=== PATIENT | female | born 1955 | race Caucasian/White ===

== ENCOUNTER → 2016-06-12 | Outpatient (CLI) | payer BC, OTHER ==
[~2016-06-12] VITALS: Ht 170.2 cm; Wt 76.5 kg
[~2016-06-12] MED LIST: ASPI81TA28 PO; BIOT1CAP8; CALC500C70 PO; CHOL1000 PO; CYAN100073; HYDR-3419 PO; LISI-789 PO; LSN5 PO; METO50TA16 PO; MULT-506 PO
[2016-06-12 08:28] VITALS: Ht 170.2 cm; Wt 76.5 kg
--- NOTE | 2016-06-12 08:57 | PAT Medication Instructions ---
Service Date Jun 12, 2016. Current Home Medication List Lisinopril (Zestril), 2.5 MG PO NOON Metoprolol Tartrate (Lopressor) (Lopressor), 50 MG PO BID Medication Instructions For Your Scheduled Surgery - Hold the following medications the morning of surgery: Lisinopril (Zestril), 2.5 MG PO NOON - Take the following medications the morning of surgery with a sip of water OTHERWISE NOTHING TO EAT OR DRINK AFTER MIDNIGHT: Metoprolol Tartrate (Lopressor) (Lopressor), 50 MG PO BID - Take the following medications as scheduled the night before surgery: Metoprolol Tartrate (Lopressor) (Lopressor), 50 MG PO BID If you have any questions please call us at [phone] or [phone] or [phone]
--- NOTE | 2016-06-12 09:45 | DIAGNOSTIC IMAGING REPORT ---
CHEST 2 VIEWS ROUTINE CLINICAL HISTORY: Preoperative chest COMPARISON STUDY: No previous studies for comparison. FINDINGS: The cardiac and mediastinal contours are normal. There is no evidence of focal pulmonary consolidation. There is no evidence of failure. No pleural effusions are visualized.[ There is minor linear scar/atelectasis within left midlung zone. IMPRESSION: No active disease in the chest. Electronically signed by: Ayan Muhammad M.D. 06/12/2016 9:43 AM Dictated Date/Time: 06/12/2016 9:43 AM
[2016-06-12 09:52] LABS: BASO % 0.4 %; BASO ABS # 0.03 K/uL (0-0.2); COMPLETE YES; EOS % 1.7 %; IG% 0.3 %; LYMPH % 31.6 %; LYMPH ABS # 2.44 K/uL (1.2-3.4); MEAN CELL VOLUME 93.9 fL (80-100); MEAN CORPUSCULAR HGB CONC 33.1 g/dl (32-36); MEAN PLATELET VOLUME 10.5 fL (7.4-10.4); MONO % 10.9 %; NEUT % 55.1 %; PLATELET COUNT 197 K/uL (130-400); RED BLOOD COUNT 5.22 M/uL (4.2-5.4); WHITE BLOOD COUNT 7.73 K/uL (4.8-10.8)
[2016-06-12 10:12] LABS: PROTHROMBIN TIME (PATIENT) 10.9 SECONDS (9.0-12.0)
[2016-06-12 10:19] LABS: BUN/CREATININE RATIO 19.8 (10-20); CALCIUM 9.7 mg/dl (8.5-10.1); CREATININE 0.75 mg/dl (0.60-1.20); POTASSIUM 4.4 mmol/L (3.5-5.1)
[2016-06-12 10:34] LABS: URINE APPEARANCE CLEAR (CLEAR); URINE BILIRUBIN NEG (NEG); URINE COLOR YELLOW; URINE EPITHELIAL CELL AUTO 20-30 /lpf (0-5); URINE NITRITE NEG (NEG); URINE PH 5.5 (4.5-7.5); URINE SPECIFIC GRAVITY 1.019 (1.000-1.030); UROBILINOGEN NEG (NEG)
[2016-06-12 10:38] LABS: MANUAL MICROSCOPIC REQUIRED? NO; REVIEW REQ? NO
== END | disposition home or self-care (01) ==
LOC: C.LAB 08:00 → EDSTATUS 06-29 08:12
PROVIDERS: ATTEND Orthopaedic Surgery Orthopaedic Surgery of the Spine
DX: Z01.818 Encounter for other preprocedural examination (principal)

== ENCOUNTER → 2016-09-22 | Outpatient (CLI) | payer OTHER ==
--- NOTE | 2016-09-22 09:00 | DIAGNOSTIC IMAGING REPORT ---
LUMBAR SPINE W/O CONTRAST HISTORY: Pain. Neuropathy. DISC HERNIATION TECHNIQUE: Multiplanar multisequence MRI of the lumbar spine was performed without the use of contrast. COMPARISON: 12/29/2015 FINDINGS: For the purpose of the report the L5-S1 disc space will be located on axial image 27 of 30. Signal characteristics of the vertebral bodies are unremarkable. Mild disc desiccation of the intervertebral discs. L1-L2: Minimal disc bulge. No significant impact upon the thecal sac. L2-L3: No significant central canal or neural foraminal narrowing. L3-L4: Small posterior disc herniation creating focal impact anterior thecal sac. This is new as compared to the prior study. Maximum posterior disc protrusion is 3 mm. L4-L5: Broad-based bulging disc similar compared to the prior study. Minimal multifactorial narrowing of the spinal canal. Moderate narrowing right neuroforamina with mild edematous change of the right exiting L4 nerve root. L5-S1: Significant narrowing right neuroforamina primarily secondary to right lateral bulging disc component. This is moderately progressive compared to the prior study. Minimal impact upon the right anterior thecal sac. Left neuroforamina is patent. IMPRESSION: 1. Bulging disc L4-L5 with considerable narrowing of the right neuroforamina. Edematous change of the exiting right L4 nerve root. This is slightly progressive from the prior study. 2. Significant right neural foraminal narrowing L5-S1 progressive from the prior study. 3. Small focal posterior disc herniation L3-L4 progressive from the prior study. The above report was generated using voice recognition software. It may contain grammatical, syntax or spelling errors. Electronically signed by: Jorje Laureano M.D. 09/22/2016 8:58 AM Dictated Date/Time: 09/22/2016 8:50 AM
== END | disposition home or self-care (01) ==
LOC: C.MRI 07:38
PROVIDERS: ATTEND Orthopaedic Surgery Orthopaedic Surgery of the Spine
DX: M51.26 Other intervertebral disc displacement, lumbar region (principal); M99.73 Connective tissue and disc stenosis of intervertebral foramina of lumbar region

== ENCOUNTER → 2016-10-05 | Outpatient (CLI) | payer OTHER ==
[2016-10-05 14:38] LABS: BASO % 0.3 %; BASO ABS # 0.03 K/uL (0-0.2); COMPLETE YES; EOS % 0.8 %; HEMATOCRIT 50.2 % (37-47); IG% 0.2 %; LYMPH % 25.3 %; LYMPH ABS # 2.22 K/uL (1.2-3.4); MEAN CELL VOLUME 92.1 fL (80-100); MEAN CORPUSCULAR HEMOGLOBIN 29.9 pg (25-34); MEAN CORPUSCULAR HGB CONC 32.5 g/dl (32-36); MEAN PLATELET VOLUME 10.4 fL (7.4-10.4); MONO % 9.7 %; NEUT % 63.7 %; PLATELET COUNT 193 K/uL (130-400); RED BLOOD COUNT 5.45 M/uL (4.2-5.4); WHITE BLOOD COUNT 8.78 K/uL (4.8-10.8)
[2016-10-05 14:51] LABS: PROTHROMBIN TIME (PATIENT) 10.4 SECONDS (9.0-12.0)
[2016-10-05 15:06] LABS: BLOOD UREA NITROGEN 8 mg/dl (7-18); BUN/CREATININE RATIO 12.9 (10-20); CALCIUM 9.8 mg/dl (8.5-10.1); CARBON DIOXIDE 31 mmol/L (21-32); CHLORIDE 104 mmol/L (98-107); CREATININE 0.65 mg/dl (0.60-1.20); GLUCOSE 91 mg/dl (70-99); POTASSIUM 3.9 mmol/L (3.5-5.1); SODIUM 139 mmol/L (136-145)
[2016-10-05 15:53] LABS: URINE APPEARANCE CLEAR (CLEAR); URINE BILIRUBIN NEG (NEG); URINE COLOR YELLOW; URINE NITRITE NEG (NEG); URINE SPECIFIC GRAVITY 1.013 (1.000-1.030); UROBILINOGEN NEG (NEG)
[2016-10-05 15:59] LABS: MANUAL MICROSCOPIC REQUIRED? NO; REVIEW REQ? NO
== END | disposition home or self-care (01) ==
LOC: C.LAB 13:32
PROVIDERS: ATTEND Orthopaedic Surgery Orthopaedic Surgery of the Spine
DX: Z01.812 Encounter for preprocedural laboratory examination (principal)

== ENCOUNTER → 2016-10-27 | Day surgery (SDC) | payer OTHER ==
[~2016-10-27] VITALS: Ht 170.2 cm; Wt 72.7 kg
[~2016-10-27] MED LIST changes: +ATROPINE SULFATE 0.1 MG/ML 5ML SYR ONE; +DOBUTamine 500MG / 250ML D5W ONE; +FENTANYL CITRATE INJ 50 MCG/1 ML 2 ML VIAL ONE; +HEPARIN SOD (PORCINE) 1000 UNIT/ML 10 ML VIAL ONE; -LISI-789 PO; +METOPROLOL TARTRATE 1 MG/ML VIAL ONE; +MIDAZOLAM HCL 1 MG/ML 2ML VIAL ONE; +NITROGLYCERIN/D5W 100MCG/ML 20ML SYR ONE; +NiCARDipine HCL INJ 2.5 MG/ML 10 ML AMP ONE
[2016-10-27 07:21] VITALS: Ht 170.2 cm; Wt 72.7 kg
[2016-10-27 07:22] VITALS: BP 135/87; PULSE 60; TEMP 36.8; O2SAT 98
--- NOTE | 2016-10-27 12:52 | DOBUTAMINE ECHO ---
*NOTICE TO RECEIVING LIBERTARIAN AGENCY This information is strictly Confidential and protected under [place] law. [place] law prohibits you from making any further disclosure of this information unless further disclosure is expressly permitted by the written consent of the person to whom it pertains or is authorized by law. A general authorization for the release of medical or other information is not sufficient for this purpose. Hospital accepts no responsibility if the information is made available to any other person, INCLUDING THE PATIENT. Interpretation Summary * Name: CLAUDIO CAMACHO Study Date: 10/27/2016 09:06 AM * Patient Location: C.CATH HR: 61 * : 1955 (M/d/yyyy) Gender: Female Height: 67 in * Age: 61 yrs Ethnicity: CA Weight: 160 lb * Ordering Physician: Jose Dempsey * Referring Physician: Waylon Haines * Performed By: Yvette Stubbs RCS * * Reason For Study: Dyspnea on exertion * BSA: 1.8 m2 * Contrast with definity used to enhance imaging. * STRESS STUDY: Normal pharmacologic stress echocardiogram. No echocardiographic or ECG evidence of myocardial ischemia having achieved heart rate adequate for diagnostic purposes. * The stress ECG response was normal * RESTING STUDY: Normal left ventricular cavity size, myocardial thickness, wall motion, and systolic function. Procedure Details * A contrast injection of Definity was performed to improve assessment of LV function. * Contrast was injected into an intravenous site in the left arm. * One vial of Definity ultrasound contrast was diluted in normal saline to a total volume of 10 ml. A total of '7' ml of solution was administered during imaging. * Lot # [id number] of Definity utilized for procedure. * Expiration date . * The attending nurse who injected the contrast agent was MERI JEWELL. Left Ventricle * The left ventricle is normal in size. * There is normal left ventricular wall thickness. * Left ventricular systolic function is normal. * Ejection Fraction = 65-70%. * Resting wall motion: Normal. Stress wall motion: Appropriate increase in Left ventricular systolic function and decrease in cavity size. No stress induced segmental wall motion abnormalities. Stress Parameters * The baseline ECG displays normal sinus rhythm. * The baseline ECG displays normal ST segments. * The stress ECG response was normal * No arrhythmia were noted with stress. * The stress portion of this study was personally supervised by the undersigned interpreting physician. * Rest heart rate was '61' BPM. * Rest blood pressure was '127/86' * Maximum heart rate achieved was 142 bpm. * Maximum heart rate was 88 % of maximum age-predicted heart rate. * Maximum blood pressure was '180/78' * Maximum Dobutamine infusion rate was '50' mcg/kg/min. * A total of 0 mg of intravenous Atropine was used to supplement Dobutamine for heart rate response. * A total of 10 mg of IV Metoprolol was administered to reverse Dobutamine-induced tachycardia. * Dobutamine infusion was terminated due to achieving target heart rate * The patient did not exhibit any symptoms during drug infusion.
--- NOTE | 2016-10-27 14:50 | HISTORY & PHYSICAL EXAMINATION ---
DATE OF ADMISSION: 10/27/2016 PRIMARY PHYSICIAN: Stanley Flaherty MD HISTORY OF PRESENT ILLNESS: The patient is a 61-year-old white female. She states that she had some type of congenital heart disease treated with a percutaneous procedure 50 years ago. She did not undergo open heart surgery. Other than that, she denies any other cardiac history. No history of angina, myocardial infarction, congestive heart failure, arrhythmia, valvular heart disease, or pericardial heart disease. She was in her normal state of health until the fall of December 2015. 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 This requires her to walk up to 15-16 miles in 1 day. She did not experience any unusual dyspnea with this activity. She had no chest pains or other anginal type pains. Her exercise tolerance and stamina were very good by her account. Last fall, she fell down an embankment. This caused an injury to her lumbar spine. She now has compression on her nerve. She has severe pain in her right leg since the injury. She has paresthesias in her right lower leg. She is being evaluated by Dr. Casey Belcher and at this time, scheduled to undergo lumbar spinal surgery in late October at [facility]. She was seen in anesthesia preop clinic. It was recommended there that she have cardiology evaluation. Her electrocardiogram that had been performed on 06/12/2016 revealed sinus bradycardia, poor R-wave progression in V1-V3. However, there were small R waves in V2 and V3. Interpreted as anterior MA versus lead placement versus LVH. Minor nonspecific ST abnormalities. When she was recently again seen in preoperative clinic, it was felt that she needed cardiology evaluation prior to undergoing her spinal surgery. She was evaluated at the [facility] by Dr. Waylon Haines. She underwent an echocardiogram, which reportedly revealed septal and apical wall motion abnormalities. She thereafter underwent an adenosine pharmacologic stress test, which was interpreted as revealing evidence of myocardial ischemia. The patient was referred to [facility] to undergo elective cardiac catheterization by me today. Prior to this morning, I had never previously met with the patient. The patient was seen and examined by me in the cardiac catheterization lab prep area. She states that her activities are limited because of her left leg pain. Despite this pain, she denies any dyspnea at rest or with her normal activities. She denies any dyspnea with any activities at this time. She steadfastly denies any chest pain or any other anginal type pains. No orthopnea, PND, palpitations, lightheadedness, syncope, or peripheral edema. She has a history of hypertension and dyslipidemia. She herself denies that she has dyslipidemia. Long-term smoking history since a teenager. She states that she smokes up to 1 pack a day. Her prior medical records indicated that she smokes up to 1-1/2 packs a day. No history of diabetes mellitus. She a history of hypertension. These have been treated with lisinopril. Prior lipid profile in November 2014 with LDL 116, HDL 35, and triglycerides 134. ALLERGIES AND ADVERSE DRUG REACTIONS: LORAZEPAM, PENICILLINS, AND AVELOX. SOCIAL HISTORY: Occasional alcohol use. She smokes cigarettes since she was 17 or 18 years old. One pack a day by her account. She is single. Two adult children. Two grandchildren. FAMILY HISTORY: She denies family history of coronary artery disease. No other family history of heart disease. There is a family history of dyslipidemia. PAST SURGICAL HISTORY: 1. Status post cholecystectomy. 2. Status post hysterectomy. 3. Status post laparoscopic abdominal surgery. 4. Status post knee surgery. PAST MEDICAL HISTORY: 1. As above. 2. Crohn's disease. 3. Dyslipidemia. 4. Hypertension. 5. She denies any history of any type of vascular disease. MEDICATIONS: Aspirin 325 mg daily, hydrocodone/acetaminophen, lisinopril 2.5 mg daily, metoprolol tartrate 50 mg b.i.d., multivitamin daily, vitamin B12, vitamin C, vitamin D, calcium with vitamin D, and rabeprazole 20 mg daily. REVIEW OF SYSTEMS: 1. As above. 2. Pain in right leg from the buttock to foot. Paraesthesias, right leg from foot to just above the right knee. 3. No current pulmonary, GI, or urinary complaints. 4. No claudication type complaints. 5. No cerebrovascular complaints. 6. Occasional sinus congestion. Worse in the fall months. Currently, she complains of sinus congestion. 7. No bleeding complaints. PHYSICAL EXAMINATION: GENERAL: The patient is sitting up in her bed. No distress. NECK: No jugular venous distension. Carotids 2/2 bilaterally. Normal upstroke. No bruits. HEAD: Normal. EYES: Pupils equal and round. Anicteric. Conjunctivae normal. No xanthelasma. LUNGS: Normal respiratory effort. Clear. No rales or wheezes. HEART: Regular rate and rhythm. S1 and S2 normal. No S3 or S4. No rub. 1/6 systolic murmur, left sternal border. No diastolic murmur. ABDOMEN: Soft. Nontender. No palpable masses or organomegaly. No bruits. EXTREMITIES: No pretibial edema. No cyanosis or clubbing. PULSES: Distal pulses in all extremities palpable. NEUROLOGICAL: Alert and oriented x3. Motor grossly intact. PSYCHIATRIC: Affect is normal. DATA: Labs on October 05 with WBC 8.78, hemoglobin 16.3, hematocrit 50.2, and platelet count 193. Sodium 139, potassium 3.9, chloride 104, carbon dioxide 31, BUN 8, creatinine 0.65, random glucose 91 and calcium 90.8. INR was 1.0. PTT 27.1. Electrocardiogram performed today revealed normal sinus rhythm, normal R-wave progression in V1-V3, minor nonspecific ST abnormalities. The patient was seen by me in the cardiac catheterization lab prep area. She denied any anginal or anginal equivalent symptoms to me. Her prior studies performed at [facility] were reviewed with her by me. It was discussed by me with her that these could represent false positive findings. The procedure, risks, benefits, and alternatives of cardiac catheterization were extensively discussed with her. The alternatives of undergoing a dobutamine stress echocardiogram with use of contrast (to enhance imaging quality) was discussed with her. She declined cardiac catheterization and opted to undergo a dobutamine stress echo. Resting echo images obtained with the use of Definity contrast revealed normal left ventricular size, wall motion, and ejection fraction. No wall motion abnormalities of the left ventricle were noted. Estimated LV ejection fraction 65%-70%. The patient was then given intravenous dobutamine to a maximum dose of 50 mcg per kilogram per minute. She had no chest pain or dyspnea during or following pharmacologic stress. No anginal equivalent type symptoms. The maximum heart rate attained was 142 beats per minute. This was 88% of maximum predicted heart rate. Resting blood pressure 127/86. Maximum blood pressure 180/78. Following pharmacologic stress and attainment of the maximum heart rate, echo images were obtained. This revealed a hyperdynamic response in all LV segments. There was a marked decrease in end systolic volume of the left ventricle compared to the resting echo images. The echo response to pharmacologic stress was normal. No segmental wall motion abnormalities noted in the left ventricle. ASSESSMENT: 1. Dobutamine stress echocardiogram today with normal ECG response. No ischemic ST segment abnormalities following pharmacologic stress to 88% of maximum predicted heart rate. Resting echo images normal. No segmental wall motion abnormalities. Normal LV ejection fraction and systolic function. Normal echo response to pharmacologic stress. No ECG or echocardiographic evidence of dobutamine stress induced myocardial ischemia. 2. She denies to me any anginal type complaints. 3. No signs or symptoms of congestive heart failure. She denies any dyspnea with her activities. None at rest. No orthopnea or PND. 4. No symptoms of any significant arrhythmia. 5. In the past, she has had mild peripheral edema. No current peripheral edema. 6. History of hypertension. Blood pressure mildly elevated today. 7. History of some type of congenital heart disease, treated at age 11 with a percutaneous procedure. I do not think that percutaneous procedures for treatment of congenital disease were available 50 years ago. She may have undergone a cardiac catheterization procedure. Nevertheless, she currently has no signs or symptoms of congestive heart failure. No sequelae of any congenital heart disease. Her right and left ventricular systolic function on echo today are normal. The right ventricular dimensions are normal. The left ventricular dimensions are normal. 8. Dyslipidemia. RECOMMENDATIONS: 1. The patient currently has no anginal or anginal equivalent type symptoms. 2. Her dobutamine stress echocardiogram to 88% of maximum predicted heart rate today with no anginal type symptoms. Normal ECG and echo response. Thus, based on her lack of anginal symptoms and the negative dobutamine stress echocardiogram today, it is recommended that she not undergo cardiac catheterization. This recommendation is by me. 3. Her prior adenosine pharmacologic stress nuclear scan results may have been secondary to a false positive finding. 4. From a cardiac standpoint, the patient is in an acceptable cardiac risk to undergo her lumbar spinal surgery. Prior to her injury last fall, she had excellent exercise tolerance. 5. Would continue her usual antihypertensive medications throughout the hospital course. 6. Would consider statin therapy for her dyslipidemia. JOE
== END | disposition home or self-care (01) ==
LOC: C.CATH 07:02
PROVIDERS: ATTEND Internal Medicine Cardiovascular Disease
DX: Z01.818 Encounter for other preprocedural examination (principal); R06.09 Other forms of dyspnea; I10 Essential (primary) hypertension; F17.200 Nicotine dependence, unspecified, uncomplicated; Q24.9 Congenital malformation of heart, unspecified; Z82.49 Family history of ischemic heart disease and other diseases of the circulatory system; Z83.3 Family history of diabetes mellitus

== ENCOUNTER 2016-11-09 05:29 | Observation (INO) | payer OTHER ==
[2016-10-11 08:58] VITALS: BMI 26.0
--- NOTE | 2016-11-08 16:53 | HISTORY & PHYSICAL EXAMINATION ---
DATE OF ADMISSION: 11/09/2016 CHIEF COMPLAINT: Back and lower extremity difficulty, being preoped for a laminectomy L5-S1. HISTORY OF PRESENT ILLNESS: Consuelo is a delightful, I have known her for approximately a year. She had a workmen's compensation injury, resulting in stenosis and nerve root irritation of the spine with a disk protrusion. She presented to my office months ago with sciatica and nerve root irritation. She has failed to improve with all sorts of conservative measures. Fortunately, she has no fever, sweats, chills, or worrisome signs. PAST MEDICAL HISTORY: Positive for hypertension. Positive stress test. No diabetes. No anemias. No carcinoma. SOCIAL HISTORY: One pack per day, 20 years. Alcohol negative. Drugs negative. PAST SURGICAL HISTORY: Includes hysterectomy, exploratory laparotomy and neck surgery. ALLERGIES: PENICILLIN, GABAPENTIN, ATIVAN, AND LYRICA. MEDICATIONS: Include metoprolol for blood pressure. REVIEW OF SYSTEMS: She denies blurred vision, double vision, tinnitus, vertigo or upper issues. She denies any chest pain or palpitations. No asthma, no wheezing, and no shortness of breath. No nausea or vomiting. Denies urgency, frequency, or dysuria. OBJECTIVE: VITAL SIGNS: Blood pressure 130/80, pulse of 80, respiratory rate 16 ____. Temperature 97.4. HEENT: Pupils react to light and accommodation. Ear, nose and throat clear. CARDIAC: Normal S1 and S2. No S3. LUNGS: Clear to auscultation. No rales, rhonchi or wheezing. ABDOMEN: Soft and nontender. Bowel sounds present in all quadrants. No masses or organomegaly. EXTREMITIES: Intact x4 uppers and lowers. She has some weakness of dorsiflexion and plantarflexion of the foot. Pain with straight leg raising on the right. Pain with flexion and extension of her spine: Slight loss of sensation. Images demonstrate nerve root compromise, particularly L5-S1. IMPRESSION: Lumbar spine radiculopathy and a disk herniation L5-S1. PROCEDURE: Includes a foraminotomy L5-S1 on the right.
[~2016-11-09] VITALS: Ht 170.2 cm; Wt 75.5 kg
[2016-11-09] VITALS (10 sets, daily range): BP systolic 103–134; BP diastolic 60–79; PULSE 52–64; TEMP 36.4–37; O2SAT 6–96; Ht 170.2 cm; Wt 75.5 kg
[~2016-11-09 05:29] MED LIST changes: -ATROPINE SULFATE 0.1 MG/ML 5ML SYR ONE; -DOBUTamine 500MG / 250ML D5W ONE; -FENTANYL CITRATE INJ 50 MCG/1 ML 2 ML VIAL ONE; -HEPARIN SOD (PORCINE) 1000 UNIT/ML 10 ML VIAL ONE; -HYDR-3419 PO; -METOPROLOL TARTRATE 1 MG/ML VIAL ONE; -MIDAZOLAM HCL 1 MG/ML 2ML VIAL ONE; -NITROGLYCERIN/D5W 100MCG/ML 20ML SYR ONE; -NiCARDipine HCL INJ 2.5 MG/ML 10 ML AMP ONE
[2016-11-09] MEDS ORDERED: LACTATED RINGER'S 1000ML 1,000 ML IV SCH (06:00)
[2016-11-09] MEDS ORDERED: NSS 1000ML IV SCH (06:00)
[2016-11-09] MEDS ORDERED: CLINDAMYCIN 600 MG/54 ML D5W 54 ML IV SCH (06:00)
[2016-11-09] MEDS ORDERED: GLYCOPYRROLATE INJ 0.2 MG/ML VIAL ONE (07:04)
[2016-11-09] MEDS ORDERED: ONDANSETRON INJ 2 MG/ML 2 ML VIAL ONE (07:04)
[2016-11-09] MEDS ORDERED: MIDAZOLAM HCL 1 MG/ML 2ML VIAL ONE (07:04)
[2016-11-09] MEDS ORDERED: NEOSTIGMINE METHYLSULFATE 5 MG/5 ML SYR ONE (07:04)
[2016-11-09] MEDS ORDERED: ROCURONIUM BROMIDE 10 MG/ML 5 ML VIAL IV ONE (07:04)
[2016-11-09] MEDS ORDERED: PROPOFOL IV EMULSION 10 MG/ML 20 ML VIAL IV ONE (07:04)
[2016-11-09] MEDS ORDERED: FENTANYL CITRATE INJ 50 MCG/1 ML 2 ML VIAL ONE (07:04)
[2016-11-09] MEDS ORDERED: DEXAMETHASONE SOD INJ 4 MG/ML VIAL ONE (07:04)
[2016-11-09] MEDS ORDERED: LIDOCAINE HCL 2% 2 ML VIAL (20MG/ML) ONE (07:04)
[2016-11-09] MEDS ORDERED: BACITRACIN 50000 UNIT VIAL ONE (07:05)
[2016-11-09] MEDS ORDERED: THROMBIN FOR SOLN 20000 UNIT KIT ONE (07:05)
[2016-11-09] MEDS ORDERED: GELATIN SPONGE SZ 100 ONE (07:05)
[2016-11-09] MEDS ORDERED: VANCOMYCIN HCL 1000MG/20ML VIAL ONE (07:05)
[2016-11-09] MEDS ORDERED: BUPIVACAINE 0.5 % 5 MG/1 ML MPF 30ML VIAL ONE (07:13)
[2016-11-09] MEDS ORDERED: EpHEDrine SULFATE INJ 50 MG/ML AMP IV PRN (07:15)
[2016-11-09] MEDS ORDERED: ONDANSETRON INJ 2 MG/ML 2 ML VIAL IV PRN ×2 (07:15→09:15)
[2016-11-09] MEDS ORDERED: PHENYLEPHRINE 100MCG/ML 5ML SYR IV PRN (07:15)
[2016-11-09] MEDS ORDERED: ALBUT/IPRATROP 3MG/0.5MG NEB 3 ML VIAL INH ONE (07:15)
[2016-11-09] MEDS ORDERED: ATROPINE SULFATE 0.1 MG/ML 5ML SYR IV PRN (07:15)
[2016-11-09] MEDS ORDERED: HYDROmorphone INJ 2 MG/ML SYR/VIAL IV PRN ×2 (07:15→09:15)
--- NOTE | 2016-11-09 07:22 | History & Physical Bridge Note ---
H&P Re-Evaluation Bridge Note: I have examined the patient, reviewed the History & Physical and in the interval since the performance of the History & Physical I have noted the following changes of clinical significance: No changes noted
[2016-11-09] MEDS ORDERED: HYDROmorphone INJ 2 MG/ML SYR/VIAL ONE (07:50)
--- NOTE | 2016-11-09 08:43 | DIAGNOSTIC IMAGING REPORT ---
INTRAOPERATIVE RADIOGRAPH CLINICAL HISTORY: L5-S1 foraminotomy. Fluoroscopy time: 3 seconds. FINDINGS: A single spot fluoroscopic view of the lower lumbar spine is presented. A surgical probe projects at the L5-S1 disc space. IMPRESSION: Intraoperative image from L5 -S1 foraminotomy as above. Electronically signed by: Victorino Lieberman M.D. 11/09/2016 8:41 AM Dictated Date/Time: 11/09/2016 8:40 AM
[2016-11-09] MEDS ORDERED: SODIUM CHLORIDE 0.9% 1000ML 1,000 ML IV SCH (09:06)
--- NOTE | 2016-11-09 09:08 | [facility] Post Operative Brief Note ---
Immediate Operative Summary Operative Date Nov 09, 2016. Pre-Operative Diagnosis Lumbar spine radiculopathy and a disk herniation L5-S1. Post-Operative Diagnosis Lumbar spine radiculopathy and a disk herniation L5-S1. Procedure(s) Performed L5-S1 Foraminotomy & Discectomy. Surgeon Housesmith Surgeon(s) Hitesh Whitmore PA-C Estimated Blood Loss 50ml Findings stenosis and disc herniation Specimens None per surgeon. Complication(s) None Disposition Recovery Room / PACU
[2016-11-09] MEDS ORDERED: OXYCODONE/ACETAMINOPHEN 5-325 TAB PO PRN ×2 (09:15)
[2016-11-09] MEDS ORDERED: MAGNESIUM HYDROXIDE SUSP 30 ML UDC PO PRN (09:15)
[2016-11-09] MEDS ORDERED: PROMETHAZINE HCL INJ 12.5 MG in SODIUM CHLORIDE 0.9% 50ML 50 ML IV PRN (09:15)
[2016-11-09] MEDS ORDERED: METOCLOPRAMIDE HCL INJ 5 MG/ML 2 ML VIAL IV PRN (09:15)
[2016-11-09] MEDS ORDERED: ACETAMINOPHEN 325 MG TAB PO PRN (09:15)
[2016-11-09] MEDS ORDERED: HYDROmorphone INJ 1 MG/ML SYR IV PRN (09:15)
--- NOTE | 2016-11-09 09:26 | OPERATIVE REPORT ---
DATE OF OPERATION: 11/09/2016 PREOPERATIVE DIAGNOSIS: Foraminal stenosis and disc herniation at L5-S1. POSTOPERATIVE DIAGNOSIS: Same. PROCEDURE: Foraminotomy, partial facetectomy and discectomy L5-S1 right-sided. SURGEON: Dr. Belcher. RESOURCE CENTER TEACHER: Hitesh Whitmore PA-C. COMPLICATIONS: No complications. BLOOD LOSS: Less than 50. DESCRIPTION OF PROCEDURE: The patient was taken to the operating room, a general intubated and anesthetic provided. Placed prone on the Rojas table. Scrubbed, prepped sterile, draped sterile. We made a skin incision from L4 to S1. We dissected the soft tissue in the same vicinity, came down on the spine between L5-S1. We put in a deep self-retaining retractor. We took an image to verify the interval. We then did a laminotomy right side only, taking off the ligamentum flavum. We did a very significant foraminotomy. We took off a little bit of the facet joint. We could see the dura. We worked diligently to the lateral aspect of the dura in trying to pull it medial. There either seemed to be scar tissue or something that prevented an early dissection. We took an image and verified it was truly the space level. I continued retracting the nerve root medial on the right hand side. I then used a spinal needle to insert into the area. There was no spinal fluid leak. There was no evidence of nerve, it seemed to be all disc material. We then used the 15 scalpel blade, various sized pituitaries and a discectomy. There were no apparent complications. There is no spinal fluid leak. No nerve root injury. We irrigated. We closed in layers with 1 Vicryl over a drain and over some vancomycin powder, 2-0 on the subcuticular layer and then 3-0 nylon on the skin, sterile dressing applied. The area was anesthetized with Marcaine solution. She was returned supine, extubated to PACU stable without complications. Sponge and needle count correct at the close of the procedure. I attest to the content of the Intraoperative Record and any orders documented therein. Any exception s are noted below.
[2016-11-09] MEDS ORDERED: IV FLUIDS COMPLETED PRN (10:00)
--- NOTE | 2016-11-09 10:05 | Anesthesiology Progress Note ---
Anesthesia Post Op Note Date & Time Nov 09, 2016 at 10:05 Vital Signs Pain Intensity: 5 Vital Signs Past 12 Hours Date Time Temp Pulse Resp B/P (MAP) Pulse Ox O2 Delivery O2 Flow Rate FiO2 11/09/16 10:00 55 16 161/76 94 Nasal Cannula 2 11/09/16 09:50 36.2 60 16 159/80 94 Nasal Cannula 2 11/09/16 09:40 60 16 157/80 94 Nasal Cannula 2 11/09/16 09:30 60 16 165/73 98 Oxymask 10 11/09/16 09:20 63 16 160/80 98 Oxymask 10 11/09/16 09:10 36.4 82 16 171/82 98 Oxymask 10 11/09/16 06:03 36.8 59 18 134/67 (89) 96 Room Air Notes Mental Status: alert / awake / arousable, participated in evaluation Pt Amnestic to Procedure: Yes Nausea / Vomiting: adequately controlled Pain: adequately controlled Airway Patency, RR, SpO2: stable & adequate BP & HR: stable & adequate Hydration State: stable & adequate Anesthetic Complications: no major complications apparent
[2016-11-09] MEDS: KETOROLAC TROMETHAMINE 30 MG/ML VIAL IV SCH ×3 (12:36→23:37)
[2016-11-09] MEDS ORDERED: LISINOPRIL 5 MG TAB PO SCH (13:30)
[2016-11-09] MEDS: CLINDAMYCIN IV 600 MG in DEXTROSE 5% 50ML 50 ML IV SCH ×2 (16:32→23:37)
[2016-11-09] MEDS: DEXAMETHASONE INJ 10 MG in SYRINGE 0 ML IV SCH ×2 (16:32→23:37)
[2016-11-09] MEDS ORDERED: NURSING VERBAL MED ORDER ONE (20:00)
[2016-11-09] MEDS: METOPROLOL TARTRATE 50 MG TAB PO SCH (20:26)
[2016-11-10 03:41] VITALS: BP 109/70; PULSE 50; TEMP 36.6; O2SAT 91
[2016-11-10] MEDS: KETOROLAC TROMETHAMINE 30 MG/ML VIAL IV SCH (05:32)
[2016-11-10] MEDS ORDERED: BISACODYL 5 MG TABEC PO PRN (06:00)
[2016-11-10] MEDS ORDERED: BISACODYL 10 MG SUPP PR PRN (06:00)
[2016-11-10 07:15] VITALS: O2SAT 91
--- NOTE | 2016-11-10 07:16 | Discharge Instructions ---
Discharge Instructions Date of Service Nov 10, 2016. Admission Reason for Admission: Disc Herniation Discharge Discharge Diagnosis / Problem: same Discharge Goals Goal(s): Improve function Activity Recommendations Activity Limitations: as noted below Lifting Limitations: gradually increase as tolerated Exercise/Sports Limitations: until after follow-up appointment May Resume Sexual Activity: after follow-up appointment Shower/Bathe: keep incision dry Be careful!!!! . Current Hospital Diet Patient's current hospital diet: Regular Diet Discharge Diet Recommended Diet: Regular Diet Procedures Procedures Performed: L5-S1 Foraminotomy & Discectomy. Pending Studies Studies pending at discharge: no Medical Emergencies . Who to Call and When: Medical Emergencies: If at any time you feel your situation is an emergency, please call 911 immediately. . Non-Emergent Contact Non-Emergency issues call your: Surgeon . "Provider Documentation" section prepared by Casey Belcher. . VTE Core Measure Inpt VTE Proph given/why not?: Treatment not indicated
--- NOTE | 2016-11-10 07:20 | Discharge Instructions ---
Discharge Instructions Date of Service Nov 10, 2016. Admission Reason for Admission: Disc Herniation Discharge Discharge Diagnosis / Problem: same Discharge Goals Goal(s): Improve function Activity Recommendations Activity Limitations: as noted below . Instructions / Follow-Up Instructions / Follow-Up MEDICATIONS: Please take your prescriptions as instructed at your pre-op appointment. SPECIAL CARE: The following information is intended to answer some of the common questions and concerns regarding your surgery. Each patient is an individual and receives individual counselling throughout the course of treatment, from diagnosis to surgery all the way through recovery. What follows is not an exhaustive list, but should be a useful guide to some of the common questions and concerns patients have regarding their surgeries. These are not provided to keep you from calling us; rather, they give you something accurate and concrete to reference as you recover from your procedure. If you need us, we are available to you. As always, if you are not sure about something, call us at [phone]. MEDICAL EMERGENCIES: For these conditions, call 911 or go to your local hospital-based Emergency Department - not [facility] or equivalent. * Paralysis * Severe chest pain or difficulty breathing * Swelling or redness of either leg Spine procedures can be rather complex and though complications are rare, they do occur. In such cases, effective advice regarding emergency situations cannot always be addressed over the telephone. You may be referred to the emergency department for more effective management of your problem. Activity Limitations: It is important to give your body time to heal, so please limit your activities : * In general, don't do anything that moves your spine too much. You should avoid contact sports, twisting or heavy lifting while you recover. * 5-10 pounds is all you should attempt to lift. * You should not plan on driving for approximately 3 weeks and you should avoid traveling more than 30-45 minutes at a time. Longer trips should be broken down with walking breaks spaced appropriately. * Physical therapy is not usually required. * Walking and good posture practices will help you recover and regain your function. * Avoid straining or sudden changes in position. * In general, the goal is to take it easy and recover. Don't cause any new problems. Just relax. Showers: * Do not take a bath, use a Jacuzzi or hot tub or otherwise submerge your incision. * It is usually safe to take a shower 4-5 days after your surgery. * Your incision does not require any special creams or ointments. * Simply clean it with soap and water, dry and re-dress with a clean bandage afterwards. Incision: * Keep incision clean, dry and protected until your first follow-up appointment. * Some amount of drainage and redness is normal. Any drainage should be fairly clear and not have a foul odor. * If you feel anything is wrong or you have excessive drainage, please call us. * Your stitches and alvaro will be removed 10-14 days after your surgery. At the time of your first post-op visit. * Neck surgeries are typically closed with a suture underneath the skin. The steri-strips over the incision should be maintained until we see you in the office. Bracing: * You may be provided with a back or neck brace to encourage good posture and prevent injury. It will remind you not to do too much as you heal and will alert others to the fact that you have had a surgery. * Back braces may be removed for showers and when you are resting at home. They must be worn when you are walking around for any period of time or for travel. * For neck surgery, you will likely be provided with two cervical collars. The soft collar ([place] or foam rubber) is worn most commonly throughout the day and while sleeping. The plastic collar (provided at the hospital) is for showering/bathing. * Except while eating, collars should remain in place. More specifically, bracing is provided for a purpose and should be worn. * Please obtain your brace or collars prior to your operation and bring them to the hospital with you on the day of surgery. * You should also bring your collars to your post-op appointment with Dr. Belcher. You should always take good care of your body and practice healthy habits, especially following surgery. You should: * Follow your doctor's treatment plan * Sit and stand properly with good posture (ears over shoulders, shoulders over hips) Don't slouch * Learn to lift correctly * Exercise regularly (low-impact aerobic exercise is especially good, but check with your doctor first) * Generally, be up and walking for 5-10 minutes at a time at least 3-4 times per day from the day you get home * Increasing walking to tolerance until you can walk for 20-30 minutes at a time * Attain and maintain a healthy body weight * Eat healthy foods ( a well-balanced, low-fat diet rich in fruits and vegetables) and get enough calcium * Avoid excessive use of alcohol When to call our office - If you notice any of the following: * Increased pain not relieve by pain medicine * Fevers greater then 100 degrees F, chills or flu symptoms * Increased redness around incision * Drainage from the incision that is not clear * Any foul smelling drainage * Swelling or fluid collection beneath the skin Miscellaneous: * In the hospital, you may be given a walker or cane for support while walking. These are temporary needs and are intended to prevent injuries due to falls. You may discontinue them when you feel strong and steady enough on your feet. * Sleep in a comfortable position. We find that many patients find a lounge chair or recliner with several pillows to be beneficial in the early post-operative period. * The support stockings should be used for 7-10 days and may be discontinued when you are back to walking more and conducting usual household activities. No problem is insignificant. We are here to help you and get you well. Contact us at [phone]. Definitions: Foraminotomy: If part of the disc or a bone spur (osteophyte) is pressing on a nerve as it leaves the vertebra (through an exit called the foramen), a foraminotomy may be done. Otomy means "to make an opening." A foraminotomy is making the opening of the foramen larger, so the nerve can exit without being compressed. Laminotomy: Similar to the foraminotomy, a laminotomy makes a larger opening, this time in your bony plate protecting your spinal canal and spinal cord (the lamina). The lamina may be pressing on your nerve, so the surgeon may make more room for the nerves using a laminotomy. Laminectomy: Sometimes, a laminotomy is not sufficient. The surgeon may need to remove all or part of the lamina. This procedure is called a laminectomy. This can often be done at many levels without any harmful effects. Current Hospital Diet Patient's current hospital diet: Regular Diet Discharge Diet Recommended Diet: Regular Diet Procedures Procedures Performed: L5-S1 Foraminotomy & Discectomy. Pending Studies Studies pending at discharge: no Medical Emergencies . Who to Call and When: Medical Emergencies: If at any time you feel your situation is an emergency, please call 911 immediately. . Non-Emergent Contact Non-Emergency issues call your: Surgeon . "Provider Documentation" section prepared by Casey Belcher. . VTE Core Measure Inpt VTE Proph given/why not?: Treatment not indicated
[2016-11-10 07:21] VITALS: BP_SYST 107; BP_SYST 109; BP_DIAS 68; BP_DIAS 70; PULSE 50; PULSE 60; TEMP 36.6; TEMP 36.7; O2SAT 91; O2SAT 92
[2016-11-10 07:41] VITALS: BP 107/68; PULSE 60; TEMP 36.7; O2SAT 92
[2016-11-10] MEDS: METOPROLOL TARTRATE 50 MG TAB PO SCH (07:54)
[2016-11-10] MEDS: DEXAMETHASONE INJ 10 MG in SYRINGE 0 ML IV SCH (07:55)
--- NOTE | 2016-11-10 08:24 | Anesthesiology Progress Note ---
Anesthesia Post Op Note Date & Time Nov 10, 2016 at 08:23 Vital Signs Vital Signs Past 12 Hours Date Time Temp Pulse Resp B/P (MAP) Pulse Ox O2 Delivery O2 Flow Rate FiO2 11/10/16 07:41 36.7 60 16 107/68 (81) 92 Room Air 11/10/16 07:21 36.7 60 16 92 Room Air 11/10/16 07:15 91 Room Air 11/10/16 03:41 36.6 50 16 109/70 (83) 91 Room Air 11/09/16 23:45 Room Air 11/09/16 22:48 37.0 56 16 106/66 (79) 91 Room Air Notes Mental Status: alert / awake / arousable, participated in evaluation Pt Amnestic to Procedure: Yes Nausea / Vomiting: adequately controlled Pain: adequately controlled Airway Patency, RR, SpO2: stable & adequate BP & HR: stable & adequate Hydration State: stable & adequate Anesthetic Complications: no major complications apparent
--- NOTE | 2016-11-10 08:45 | DISCHARGE SUMMARY ---
DATE OF DISCHARGE: 11/10/2016 SUBJECTIVE: I saw Consuelo the evening of the , morning of the 10 of November. She is improved, stable. No complaints of pain. OBJECTIVE: Vital signs stable, alert, oriented. Laboratory work not indicated. ASSESSMENT: Status post discectomy lumbar spine L5-S1 and foraminotomy L5-S1 lumbar. DISPOSITION: Includes discharge home today. Dressings changed. Follow up in the office in approximately 10 days. Instructions, precautions given x2, 1 in the office and 1 in the floor of the hospital. She is to be careful with bending, stooping, lifting, no driving. We will see her back again in about 10 days.
[2016-11-10] MEDS ORDERED: POLYETHYLENE (MIRALAX) 17 GM PACK PO SCH (09:00)
[2016-11-10] MEDS ORDERED: CALCIUM 600MG + VIT D 400 IU TAB PO SCH (09:00)
[2016-11-10] MEDS ORDERED: ASPIRIN 81 MG ECTAB PO SCH (09:00)
[2016-11-10] MEDS ORDERED: MULTIVITAMIN TAB PO SCH (09:00)
--- NOTE | 2016-11-11 09:11 | DISCHARGE SUMMARY ---
SUBJECTIVE: She is improved, stable. Minimal complaints of pain, no fevers, sweats, chills. Alert, oriented. OBJECTIVE: Wound was clean and dry. No drainage. ASSESSMENT: Disc herniation lumbar spine surgery. PLAN: Discharged home on 11/10/2016, improved stable condition. Follow-up examination in the office 10 days. Instructions given in the office. Instructions given to her in the hospital.
== END 2016-11-10 08:30 | disposition home or self-care (01) ==
LOC: C.ACU 05:29 → C.3E 05:40 → ENRESERV 09:49
PROVIDERS: ADMIT Orthopaedic Surgery Orthopaedic Surgery of the Spine; ATTEND Orthopaedic Surgery Orthopaedic Surgery of the Spine